=== PATIENT | female | born 1995 | race Caucasian/White ===

== ENCOUNTER 2018-05-20 01:35 | Emergency (ER) | payer SELFPAY ==
[2018-05-20 01:36] VITALS: BP 120/90; PULSE 98; RESP 15; TEMP 36.9; O2SAT 97; BMI 19.1
--- NOTE | 2018-05-20 02:04 | ED.DCSUM_ITS ---
- ER Visit Summary Date of Service: 05/20/18 Chief Complaint: Glass in the left foot History of Present Illness: The patient is a 22 F who presents for glass in her left heel for 1 month. 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 It is been in her foot since then and did not really bother her until 3 days ago. It is extremely painful when she steps a certain way and since that shock of pain up to her knee. She also is noting feeling like her foot is asleep. Unknown when her last tetanus was. She denies any other symptoms, including fever or constitutional symptoms. Physical Examination: She is awake and alert sitting in bed in no distress. Afebrile and hemodynamically stable. Examination of the lower extremity shows symmetric appearance, temperature, strength and sensation. DP pulses are 2+ and symmetric. Patient has a round thickening in the middle of the heel with a central dark core, tender to palpation, no erythema or fluctuance, consistent with a plantar wart. Test Results: Clinical Impression(s) from Imaging Studies Foot X-Ray 05/20/18 01:46 IMPRESSION: Normal x-ray examination of the foot. No radiopaque foreign bodies. Electronically Signed: Jayden Callahan MD at 3:00 EDT , Service support , Emergency Department Course and Treatment: X-ray performed of the heel to evaluate for any retained foreign body. No glass was noted in the foot. Patient was given instructions on qvut-xis-uvmizmg care for plantar wart. Discharge home. Treatment Plan: [] Disposition: [] Impression: Left plantar wart This note was generated with [employer] Original [employer] dictation software. It may contain incorrect words, spelling, and punctuation that were not noted in review of the chart prior to signing ED Disposition - Plan for ED Patient: Disposition: Home or Assisted Living Chief Complaint: Foreign Body Instructions: ED Warts Plantar Referrals: Oseas Love, [Primary Care Provider] - 1-2 Weeks Additional Instructions: You have a wart on your heel. There is no piece of glass in your foot. You can purchase jsep-[id number]-vvrioxn treatment for the wart at any drugstore. Follow the directions on the packaging. You can also follow-up with your doctor for another evaluation or if the wytq-wje-cddovru treatments are not working.
--- NOTE | 2018-05-20 03:17 | ED.DEP ---
ED Disposition - Plan for ED Patient: Disposition: Home or Assisted Living Chief Complaint: Foreign Body Instructions: ED Warts Plantar Referrals: Oseas Love DO [Primary Care Provider] - 1-2 Weeks Additional Instructions: You have a wart on your heel. There is no piece of glass in your foot. You can purchase zdjm-ejz-ethdkja treatment for the wart at any drugstore. Follow the directions on the packaging. You can also follow-up with your doctor for another evaluation or if the bkgs-jce-bqlkzcb treatments are not working.
[2018-05-20 03:24] VITALS: PULSE 68; RESP 16; O2SAT 98
== END 2018-05-20 03:25 | disposition home or self-care (01) ==
PROVIDERS: Emergency Provider Emergency Medicine; Family Provider Family Medicine; PCP Family Medicine
DX: B07.0 Plantar wart (principal)
CPT/HCPCS: 73620; 99282

== ENCOUNTER 2019-04-29 13:43 | Emergency (ER) | payer OTHER, SELFPAY ==
[2019-04-29 13:44] VITALS: BP 121/70; PULSE 68; RESP 17; TEMP 37; O2SAT 96
--- NOTE | 2019-04-29 14:57 | US_ITS ---
STUDY: FIRST TRIMESTER OBSTETRICAL ULTRASOUND REASON FOR EXAM: Female, 23 years old. Positive home test. Heavy bleeding. HCG pending. LMP: 03/03/2019. TECHNIQUE: Transvaginal. TECHNICAL QUALITY: Adequate. PRIOR ULTRASOUND: None. FINDINGS: Gravid uterus measures 8.8 x 5.3 x 6.9 cm. Intrauterine gestational sac is identified. Embryo is documented with crown-rump length of 0.5 cm corresponding to gestational age of 6 weeks 2 days. No cardiac activity. Normal yolk sac. Internal os is closed. Right ovary is normal in size and echogenicity, measuring 3.3 x 2.1 x 3 cm. Arterial and venous flow are documented. No mass or dominant cyst. Left ovary is normal in size and echogenicity, measuring 3.5 x 1.9 x 2.7 cm. Arterial and venous flow are documented. No mass or dominant cyst. No free fluid. US/Transvaginal w/Preg US IMPRESSION: 1. Single intrauterine gestation. Absent cardiac activity consistent with early gestation. If clinically appropriate, consider follow-up in 5-10 days. Electronically Signed: Destiny Meredith MD at 16:31 EDT Tel , Service support ,
[2019-04-29] MEDS: 0.9% Normal Saline 1,000 ML 1000 ML IV (15:40)
[2019-04-29 15:43] LABS: Absolute Lymphocyte Count 1.22 X10^3/uL (0.83-4.51); Absolute Neutrophil Count 5.1 X10^3/uL (2.0-7.7); Basophil# 0.04 X10^3/uL; Basophil% 0.6 % (0-1); Eosinophils% 2.9 % (0-5); Hematocrit 37.4 % (37-47); Hemoglobin 12.6 g/dL (12.0-15.0); Lymphocyte # 1.22 X10^3/ul (4.0); Lymphocyte % 17.6 % (19-41); Mean Corp Hgb Conc 33.7 g/dL (32-36); Mean Corpuscular Hgb 30.3 pg (27.0-32.0); Mean Corpuscular Volume 89.9 fL (81-99); Mean Platelet Vol. 8.9 fl (6.2-12.0); Monocyte% 5.8 % (0-10); NRBC Flagged by Analyzer 0 % (0-5); Neutrophil # 5.06 X10^3/uL (2.7-7.7); Neutrophil % 72.7 % (47-70); Platelet Count 254 K/mm3 (150-450); RBC Distribution Width CV 13.1 % (11.6-14.6); RBC Distribution Width SD 43.1 fl (35.1-43.9); Red Blood Count 4.16 M/mm3 (4.2-5.4)
--- NOTE | 2019-04-29 15:50 | ED.VIS.GEN ---
History of Present Illness Chief Complaint: Vag Bld, Preg Informant: Patient Onset: Days Context: Gradual Onset Timing: Intermittent Current Severity: Moderate Maximum Severity: Moderate Narrative: The patient presents to the emergency department with vaginal bleeding. Patient is at approximately 8 weeks gestation by dates. She states that her initial resulted in a miscarriage early. She states that she began to have some bleeding over the past 3 days. States that she is had some increasing clots. She denies any pain. She denies any weakness or lightheadedness. The patient does not know her blood type. She is not on any daily medications. Prior similar symptoms: No Recent Illness/Hospitalization: No Past Medical History - Allergies and Home Meds Allergies/Adverse Reactions: Allergies No Known Allergies Allergy (Verified 04/29/19 13:44) Primary Care Physician: Aviva Almonte MD [STAFF PHYSICIAN] - Prior records reviewed: Yes Surgical History: no surgical history Smoking Status: Never smoker Review of Systems General: Denies: Chills, Fever, Sweats Eyes: Denies: Visual changes - bilaterally, Diplopia ENT: Denies: Rhinorrhea, Sore throat Cardiovascular: Denies: Chest pain, Palpitations Respiratory: Denies: Dyspnea, Cough, Dyspnea on exertion Gastrointestinal: Denies: Abdominal pain, Nausea, Vomiting, Diarrhea, Melena, Hematochezia Genitourinary: Denies: Dysuria, Hematuria, Frequency Musculoskeletal: Denies: Back pain, Extremity Pain Skin: Denies: Rash, Wounds Neurological: Denies: Headache, Weakness, Numbness Physical Exam Vital Signs/Narrative: Vital Signs Temp Pulse Resp BP Pulse Ox 04/29/19 13:44 98.6 F 68 17 121/70 H 96 Inital Vital Signs reviewed: Yes General: Well nourished, Well developed, No Acute Distress Head: Normocephalic, Atraumatic Eyes: Perrl, EOMI ENT: Moist mucous membranes, No rhinorrhea Neck: Supple, Nontender Cardiovascular: Regular rate, Regular rhythm, No murmurs Respiratory: No distress, CTA bilaterally, Chest nontender Abdomen: Soft, Nontender, Nondistended, Normal bowel sounds Back: Nontender, Normal Inspection Extremities: Nontender, No edema Skin: Normal color, No rash Neurological: Alert, Oriented x3, Cranial nerves II-XII grossly intact, Normal Strength, Normal Sensation Psychological: Normal affect, Normal Mood Diagnostic/Tx/Re-eval Clinical Impression(s) from Imaging Studies Obstetrics Ultrasound 04/29/19 14:57 IMPRESSION: 1. Single intrauterine gestation. Absent cardiac activity consistent with early gestation. If clinically appropriate, consider follow-up in 5-10 days. Electronically Signed: Destiny Meredith MD at 16:31 EDT Tel , Service support , Abnormal Lab Results 04/29/19 04/29/19 04/29/19 15:33 15:33 15:33 WBC 7.0 RBC 4.16 L Hgb 12.6 Hct 37.4 MCV 89.9 MCH 30.3 MCHC 33.7 RDW Std Deviation 43.1 RDW Coeff of Sheree 13.1 Plt Count 254 MPV 8.9 Immature Gran % (Auto) 0.400 Neut % (Auto) 72.7 H Lymph % (Auto) 17.6 L Hood % (Auto) 5.8 Eos % (Auto) 2.9 Baso % (Auto) 0.6 Absolute Neuts (auto) 5.1 Absolute Lymphs (auto) 1.22 Nucleated RBC % 0 HCG, Quant 4030 H Blood Type A POSITIVE - Medical Decision Making The patient presents with vaginal bleeding and a positive test. She has absolutely no pain. Blood counts were obtained were unremarkable. She had no further bleeding while here. The patient's blood type is a positive and this was confirmed. Her quant was about 4000. Ultrasound demonstrates a single intrauterine at approximately 6 weeks. There is no definitive cardiac activity, but at this stage in that is normal. The patient was counseled this may be threatened miscarriage.. She is going to follow-up with [facility]. She is comfortable with this plan of care. Impression 1. Threatened ED Disposition - Plan for ED Patient: Instructions: POSSIBLE MISCARRIAGE (Threatened ) Referrals: Aviva Almonte MD [STAFF PHYSICIAN] -
[2019-04-29 16:35] LABS: hCG Titer Quant., Serum 4030 mIU/mL (1-3)
[2019-04-29 16:56] VITALS: BP 104/74; PULSE 82; RESP 17
== END 2019-04-29 16:59 | disposition home or self-care (01) ==
LOC: ED 15:18
PROVIDERS: Emergency Provider Emergency Medicine
DX: O20.0 Threatened abortion (principal); Z3A.08 8 weeks gestation of pregnancy
CPT/HCPCS: 76817; 84702; 85025; 86900; 96360; 99283